=== PATIENT | female | born 1955 | race Caucasian/White ===

== ENCOUNTER 2016-12-18 06:03 | Inpatient (IN) | payer BC ==
[2016-12-04 08:22] VITALS: BMI 18.0
--- NOTE | 2016-12-04 08:59 | PAT Medication Instructions ---
Service Date Dec 04, 2016. Current Home Medication List Albuterol Sulf (Proventil 0.083% 2.5MG/3ML), 2.5 MG INH QID PRN for SOB/Wheezing Albuterol Sulfate (Proair Respiclick), 2 PUFF INH Q4 PRN for SOB/Wheezing Fluticasone Prop/Salmeterol (Advair Diskus 500/50 60 Dose), 1 PUFF INH BID Ipratropium-Albuterol (Duoneb), 1 TREATMENT INH BID Ipratropium-Albuterol (Combivent Respimat), 1 PUFFS INH QID PRN for SOB/Wheezing Levofloxacin (Levaquin), 500 MG PO UD PRN for rescue kit Lorazepam (Ativan), 0.5 MG PO Q6H PRN for Anxiety Polyethylene Glycol 3350 (Miralax), 17 GM PO QAM Prednisone (Deltasone), 1 DOSE PO UD PRN for RESCUE KIT Tramadol (Ultram), 100 MG PO Q4H PRN for Pain Medication Instructions For Your Scheduled Surgery Levofloxacin (Levaquin), 500 MG PO UD PRN for rescue kit (not taking currently) Prednisone (Deltasone), 1 DOSE PO UD PRN for RESCUE KIT (not taking currently) - Hold the following medications the morning of surgery: Polyethylene Glycol 3350 (Miralax), 17 GM PO QAM - Take the following medications the morning of surgery with a sip of water: Tramadol (Ultram), 100 MG PO Q4H PRN for Pain (can take up to four hours prior to surgery if needed) Lorazepam (Ativan), 0.5 MG PO Q6H PRN for Anxiety (if needed) Albuterol Sulf (Proventil 0.083% 2.5MG/3ML), 2.5 MG INH QID PRN for SOB/ Wheezing (if needed) Albuterol Sulfate (Proair Respiclick), 2 PUFF INH Q4 PRN for SOB/Wheezing ( bring with you to hospital on day of surgery) Fluticasone Prop/Salmeterol (Advair Diskus 500/50 60 Dose), 1 PUFF INH BID ( if needed) Ipratropium-Albuterol (Duoneb), 1 TREATMENT INH BID (if needed) Ipratropium-Albuterol (Combivent Respimat), 1 PUFFS INH QID PRN for SOB/ Wheezing (if needed) - Take the following medications as scheduled the night before surgery: Tramadol (Ultram), 100 MG PO Q4H PRN for Pain (if needed) Lorazepam (Ativan), 0.5 MG PO Q6H PRN for Anxiety (if needed) Albuterol Sulf (Proventil 0.083% 2.5MG/3ML), 2.5 MG INH QID PRN for SOB/ Wheezing (if needed) Albuterol Sulfate (Proair Respiclick), 2 PUFF INH Q4 PRN for SOB/Wheezing ( if needed) Fluticasone Prop/Salmeterol (Advair Diskus 500/50 60 Dose), 1 PUFF INH BID ( if needed) Ipratropium-Albuterol (Duoneb), 1 TREATMENT INH BID (if needed) Ipratropium-Albuterol (Combivent Respimat), 1 PUFFS INH QID PRN for SOB/ Wheezing (if needed) If you have any questions please call us at [phone] or [phone] ( [place]) or [phone]
[2016-12-04 10:18] LABS: URINE APPEARANCE CLEAR (CLEAR); URINE BILIRUBIN NEG (NEG); URINE COLOR YELLOW; URINE NITRITE NEG (NEG); URINE SPECIFIC GRAVITY 1.004 (1.000-1.030); UROBILINOGEN NEG (NEG)
[2016-12-04 10:23] LABS: INR 0.9 (0.9-1.1); PARTIAL THROMBOPLASTIN RATIO 1.1; PROTHROMBIN TIME (PATIENT) 10.1 SECONDS (9.0-12.0)
[2016-12-04 10:24] LABS: ESTIMATED AVERAGE GLUCOSE 123 mg/dl; HA1C FLAG Normal (Normal)
[2016-12-04 10:45] LABS: MANUAL MICROSCOPIC REQUIRED? NO; REVIEW REQ? NO
--- NOTE | 2016-12-17 10:03 | HISTORY & PHYSICAL EXAMINATION ---
DATE OF ADMISSION: 12/18/2016 CHIEF COMPLAINT: Right hip pain. HISTORY OF PRESENT ILLNESS: The patient is a 61-year-old female with known osteoarthritis about her right hip. She has had a previous intraarticular corticosteroid injection. She takes [id number]-[id number] pain medications as needed. She continues to have ongoing pain and disability and now desires to proceed with right total hip arthroplasty. PAST MEDICAL HISTORY: COPD. PAST SURGICAL HISTORY: Tubal ligation. MEDICATIONS: Include Combivent Respimat 20/100 one inhalation q. 4-6 hours, Meloxicam 15 mg daily, Ativan 0.5 mg q. 6 hours p.r.n. anxiety, Ventolin 2 puffs 3 times daily p.r.n., DuoNeb 2.5/0.5 four times daily, Advair Diskus 1 puff 2 times daily, tramadol 50 mg p.r.n. pain. ALLERGIES: AUGMENTIN CAUSES DIARRHEA, BEE STINGS. SOCIAL HISTORY AND REVIEW OF SYSTEMS: Noncontributory. PHYSICAL EXAMINATION: GENERAL: Well-nourished, well-developed, petite female who appears her stated age. HEAD, EYES, EARS, NOSE, AND THROAT: Normocephalic, atraumatic, extraocular movements intact, oropharynx pink and moist. NECK: Supple without adenopathy. LUNGS: Clear to auscultation bilaterally. HEART: Regular rate and rhythm. ABDOMEN: Soft, nontender, nondistended. EXTREMITIES: The upper extremities are within normal limits. The right hip demonstrates limited range of motion. There is decreased internal/external rotation with pain at end range. X-RAYS: X-rays were reviewed. She has severe osteoarthritis about the right hip with complete loss of the joint space. There is bone on bone arthritis. There is osteophyte formation about the femoral head and acetabulum. ASSESSMENT: Right hip degenerative joint disease. PLAN: Risks versus benefits were discussed. Consent was obtained. The patient's primary care physician is Dr. Parks from [place]. We will proceed with right total hip arthroplasty upon preoperative workup and medical clearance.
[2016-12-18] VITALS (10 sets, daily range): BP systolic 103–148; BP diastolic 51–80; PULSE 68–102; TEMP 36.6–36.9; O2SAT 92–98; Ht 152.4 cm; Wt 43.3 kg
[~2016-12-18] VITALS: Ht 152.4 cm; Wt 43.3 kg
[~2016-12-18 06:03] MED LIST: ACETAMINOPHEN 500 MG TAB PO SCH; ADVIN50/60 INH; ALBINS/ INH; ALBU18002 INH; CEFAZOLIN 1000MG/55 ML D5W 55 ML IV SCH; CeleBREX 200 MG CAP PO SCH; DEXAMETHASONE 4 MG TAB PO SCH; GABAPENTIN 300 MG CAP PO SCH; IPRA1AER2 INH; IPRASOL4 INH; LACTATED RINGER'S 1000ML 1,000 ML IV SCH; LACTATED RINGER'S 1000ML IV SCH; LEVO1TAB33 PO; LORA-741 PO; METOCLOPRAMIDE HCL 10 MG TAB PO SCH; POLY335019 PO; PRED-603 PO; TRAM-10 PO
[2016-12-18] MEDS: FAMOTIDINE 20 MG TAB PO SCH ×2 (06:21→06:55)
[2016-12-18] MEDS: TRANEXAMIC ACID INJ 1,000 MG in SODIUM CHLORIDE 0.9% 100ML 100 ML IV SCH ×2 (06:30→07:45)
[2016-12-18] MEDS ORDERED: BUPIVACAINE 0.5 % 5 MG/1 ML PF 10ML VIAL ONE (06:34)
[2016-12-18] MEDS ORDERED: POVIDONE-IODINE OP SOLN 30 ML BTL ONE (06:54)
[2016-12-18] MEDS ORDERED: BACITRACIN 50000 UNIT VIAL ONE (06:54)
--- NOTE | 2016-12-18 06:59 | History & Physical Bridge Note ---
H&P Re-Evaluation Bridge Note: I have examined the patient, reviewed the History & Physical and in the interval since the performance of the History & Physical I have noted the following changes of clinical significance: No changes noted
[2016-12-18] MEDS ORDERED: NURSING VERBAL MED ORDER ONE (07:00)
[2016-12-18] MEDS ORDERED: ROPIVACAINE 5MG/ML 30 ML 150 MG, BUPIVACAINE/EPINEPHR 0.5% MPF 30 ML, KETOROLAC TROMETH... INFIL SCH ×7 (07:00)
[2016-12-18] MEDS ORDERED: MIDAZOLAM HCL 1 MG/ML 2ML VIAL ONE (07:06)
[2016-12-18] MEDS ORDERED: FENTANYL CITRATE INJ 50 MCG/1 ML 2 ML VIAL ONE (07:06)
[2016-12-18] MEDS ORDERED: ORTHO JOINT ANESTHETIC ONE (07:14)
[2016-12-18] MEDS ORDERED: ONDANSETRON INJ 2 MG/ML 2 ML VIAL IV PRN ×2 (07:45→09:45)
[2016-12-18] MEDS ORDERED: EpHEDrine SULFATE INJ 50 MG/ML AMP IV PRN (07:45)
[2016-12-18] MEDS ORDERED: ATROPINE SULFATE 0.1 MG/ML 5ML SYR IV PRN (07:45)
[2016-12-18] MEDS ORDERED: FENTANYL CITRATE INJ 50 MCG/1 ML 2 ML VIAL IV PRN (07:45)
[2016-12-18] MEDS ORDERED: PROPOFOL IV EMULSION 10 MG/ML 20 ML VIAL IV ONE (08:30)
[2016-12-18] MEDS ORDERED: LIDOCAINE HCL 2% 2 ML VIAL (20MG/ML) ONE (08:30)
[2016-12-18] MEDS ORDERED: PHENYLEPHRINE 100MCG/ML 5ML SYR ONE (08:30)
--- NOTE | 2016-12-18 09:15 | [facility] Post Operative Brief Note ---
Immediate Operative Summary Operative Date Dec 18, 2016. Pre-Operative Diagnosis Right hip degenerative joint disease Post-Operative Diagnosis right hip degenerative joint disease Procedure(s) Performed Total right hip arthroplasty uncemented Surgeon Dr. Ellsworth Specialty Plant Supervisor Surgeon(s) Ac Avilez PA-C Estimated Blood Loss 100ml Findings oa Specimens A. Right Femur Head Disposition Recovery Room / PACU
[2016-12-18] MEDS ORDERED: IPRATROPIUM BROMIDE/ALBUTEROL respimat INH INH PRN (09:45)
[2016-12-18] MEDS ORDERED: NON-FORMULARY MEDICATION (Albuterol Sulfate (Proair Respiclick) 2 PUFF) INH PRN (09:45)
[2016-12-18] MEDS ORDERED: BISACODYL 10 MG SUPP PR PRN (09:45)
[2016-12-18] MEDS ORDERED: MAGNESIUM HYDROXIDE SUSP 30 ML UDC PO PRN (09:45)
[2016-12-18] MEDS ORDERED: ZOLPIDEM TARTRATE 5 MG TAB PO PRN (09:45)
[2016-12-18] MEDS ORDERED: MoRPHine SULFATE 2 MG/ML CARP IV PRN (09:45)
[2016-12-18] MEDS ORDERED: ALBUTEROL 0.083% NEBU SOLN 3 ML VIAL INH PRN (09:45)
[2016-12-18] MEDS ORDERED: LORAZEPAM 0.5 MG TAB PO PRN (09:45)
[2016-12-18] MEDS ORDERED: ALUMINUM/MAGNESIUM/SIMETH (MAALOX MAX) 30 ML UDC PO PRN (09:45)
[2016-12-18] MEDS ORDERED: DiphenhydrAMINE HCL 50 MG/ML VIAL IV PRN (09:45)
--- NOTE | 2016-12-18 10:14 | Anesthesiology Progress Note ---
Anesthesia Post Op Note Date & Time Dec 18, 2016 at 10:14 Vital Signs Pain Intensity: 0 Vital Signs Past 12 Hours Date Time Temp Pulse Resp B/P Pulse Ox O2 Delivery O2 Flow Rate FiO2 12/18/16 10:10 36.7 83 16 116/80 99 Nasal Cannula 3 12/18/16 10:00 68 16 131/65 100 Mask 5 12/18/16 09:50 71 16 134/85 100 Mask 10 12/18/16 09:40 73 16 138/77 100 Mask 10 12/18/16 09:38 36.8 80 16 121/88 98 Mask 10 12/18/16 06:34 36.9 102 20 135/80 92 Room Air Notes Mental Status: alert / awake / arousable, participated in evaluation Pt Amnestic to Procedure: Yes Nausea / Vomiting: adequately controlled Pain: adequately controlled Airway Patency, RR, SpO2: stable & adequate BP & HR: stable & adequate Hydration State: stable & adequate Neuraxial Anesthesia: was administered, sensory block is resolving Anesthetic Complications: no major complications apparent
--- NOTE | 2016-12-18 10:30 | OPERATIVE REPORT ---
DATE OF OPERATION: 12/18/2016 PREOPERATIVE DIAGNOSIS: Osteoarthritis, right hip. POSTOPERATIVE DIAGNOSIS: Osteoarthritis, right hip. PROCEDURE: Right connective total hip arthroplasty. SURGEON: Dr. Ellsworth. RAILROAD MAINTENANCE CLERK: MARLY Barnes. ANESTHESIA: Spinal. COMPLICATIONS: None. OPERATION AND FINDINGS: PROCEDURE: Following induction of adequate spinal anesthesia, the patient was placed in left lateral decubitus position and right Reina-Langenbeck incision was made. Subcutaneous tissue was sharply dissected. Electrocautery used for hemostasis. The fascia was incised throughout the length of the wound and a cook scissor placed beneath the short external rotators. The pyriformis was tagged with #1 Vicryl. The short external rotators were divided from the posterior aspect of the femur using electrocautery. These were swept posteriorly. A T-capsulotomy incision was made and the hip was dislocated using a combination of flexion, adduction, and internal rotation. Exposure of the femoral neck with old-style Hohmann and a blunt Hohmann was carried out and a femoral rasp was utilized as a guide for making the appropriate level femoral neck cut. This bone fragment was removed and reserved on the back table. Next, attention was turned to the acetabulum where bone hook was used to retract the femur while the offset retractors were placed anterior and posteriorly. A double-angled Hohmann was placed in superior and anterior position exposing the acetabulum nicely. Acetabular labrum as well as posterior capsule elements were removed using a long knife and a long pickup. Fovea centralis was cleared of all soft tissue. Sequential reamings were carried up to a 46 and decision was made to proceed with impaction of a 46 trabecular metal cup. This was impacted and held using a single 35 mm bone screw. The acetabular liner was placed with 15 of elevated posterior wall in the superior and posterior position. Next, attention was turned to the femoral portion of the case where a Bovie and pickup was used to further clear short external rotators from their insertion on the femur. Box osteotome was used to gain access to the femoral canal and the T-handled rasp and a rattail rasp were used to further open and lateral the canal. Sequentially raspings were carried up to a 2 which gave good fit and fill of the proximal femur. A trial reduction was carried out and std. offset femoral neck component was chosen as the size to be used. A -2.5 mm ceramic femoral head was impacted into position, +0 head was utilized. The trial reduction was stable in all degrees of rotation with no vihj-ne-bzvy impingement. The hip was dislocated. The trial components were removed and the final femoral stem, neck, and femoral head combination were assembled on the back table and impacted into position. Hip was relocated. Range of motion checked once again successful and the wound was irrigated. The pyriformis repaired to the greater trochanter using #1 Vicryl tyvuqz-fa-lalzf suture. A Hemovac drain was placed and the fascia was closed using #1 Vicryl, subcutaneous tissue was closed using 0 Dexon, and skin was closed with naeem. Sterile dressing of Adaptic, 4 x 4's, ABDs, and foam tape was applied. The patient tolerated the procedure well, recovery room stable. Due to the complex nature of the procedure, the entire surgery was performed with the operational assistance of MARLY Barnes. The program assistant, under direct supervision, was involved in the actual performance of all aspects of the surgical procedure including hemostasis, tissue retraction and incision, instrument management, patient positioning, and wound closure. I attest to the content of the Intraoperative Record and any orders documented therein. Any exceptions are noted below. TK
--- NOTE | 2016-12-18 10:34 | DIAGNOSTIC IMAGING REPORT ---
RIGHT PELVIS/UNILATERAL HIP 1 VIEW CLINICAL HISTORY: IN PACU - A/P PELVIS and LATERAL HIP INCLUDING ALL OF IMPLANT Right COMPARISON: None. DISCUSSION: Anatomic alignment status post total right hip replacement expected soft tissue postoperative change IMPRESSION: Anatomic alignment status post total right hip replacement Electronically signed by: Prakash Granados M.D. 12/18/2016 10:33 AM Dictated Date/Time: 12/18/2016 10:32 AM
[2016-12-18] MEDS ORDERED: ALBUTEROL HFA INHALER 8.5 GM INH PRN (12:00)
[2016-12-18] MEDS ORDERED: MoRPHine SULFATE 10 MG/ML CARP/VIAL IV PRN (12:15)
[2016-12-18] MEDS ORDERED: MoRPHine SULFATE 4 MG/ML 1 ML CARP\\VIAL IV PRN (12:15)
[2016-12-18] MEDS: FERROUS GLUCONATE 324 MG TAB PO SCH ×2 (12:48→16:20)
[2016-12-18] MEDS: D5W AND 1/2NSS + 20MEQ KCL 1,000 ML IV SCH ×2 (12:48→21:09)
[2016-12-18] MEDS: FLUTICASONE/SALMETEROL (ADVAIR) 500/50 INH 14 PUFF INH SCH ×2 (12:50→21:00)
[2016-12-18] MEDS: OXYCODONE HCL IR 5 MG TAB (IMMEDIATE RELEASE) PO PRN ×2 (14:13→18:39)
[2016-12-18] MEDS: CEFAZOLIN IV 1,000 MG in DEXTROSE 5% 50ML 50 ML IV SCH ×2 (16:18→23:46)
[2016-12-18] MEDS: ACETAMINOPHEN 500 MG TAB PO SCH ×2 (16:19→23:46)
[2016-12-18] MEDS: KETOROLAC TROMETHAMINE 15 MG/ML VIAL IV. SCH ×2 (16:19→21:10)
[2016-12-18] MEDS ORDERED: ALBUT/IPRATROP 3MG/0.5MG NEB 3 ML VIAL INH SCH (20:00)
[2016-12-18] MEDS: ALBUT/IPRATROP 3MG/0.5MG NEB 3 ML VIAL INH SCH (20:20)
[2016-12-18] MEDS ORDERED: SENNA 8.6 MG TAB PO SCH (21:00)
[2016-12-18] MEDS: DOCUSATE SODIUM 100 MG CAP PO SCH (21:08)
[2016-12-18] MEDS: ASPIRIN 81 MG ECTAB PO SCH (21:09)
[2016-12-19 03:15] VITALS: BP 119/65; PULSE 89; TEMP 36.6; O2SAT 95
[2016-12-19] MEDS: KETOROLAC TROMETHAMINE 15 MG/ML VIAL IV. SCH ×2 (03:31→10:23)
[2016-12-19 07:18] LABS: BASO % 0.1 %; BASO ABS # 0.01 K/uL (0-0.2); COMPLETE YES; EOS % 0.4 %; HEMATOCRIT 31.7 % (37-47); IG% 0.2 %; LYMPH ABS # 1.79 K/uL (1.2-3.4); MEAN CELL VOLUME 97.5 fL (80-100); MEAN CORPUSCULAR HEMOGLOBIN 32.6 pg (25-34); MEAN CORPUSCULAR HGB CONC 33.4 g/dl (32-36); MEAN PLATELET VOLUME 10.6 fL (7.4-10.4); MONO % 9.5 %; NEUT % 70.8 %; PLATELET COUNT 178 K/uL (130-400); RED BLOOD COUNT 3.25 M/uL (4.2-5.4); WHITE BLOOD COUNT 9.43 K/uL (4.8-10.8)
[2016-12-19 07:28] VITALS: PULSE 74; O2SAT 98
[2016-12-19] MEDS: ALBUT/IPRATROP 3MG/0.5MG NEB 3 ML VIAL INH SCH (07:28)
[2016-12-19 07:42] LABS: BUN/CREATININE RATIO 16.4 (10-20); CALCIUM 8.1 mg/dl (8.5-10.1); CREATININE 0.55 mg/dl (0.60-1.20); POTASSIUM 4.3 mmol/L (3.5-5.1)
--- NOTE | 2016-12-19 07:43 | Orthopedic Progress Note ---
Orthopedic Progress Note Date of Service Dec 19, 2016. Subjective Post OP Day: 1 Reports: feeling well (Pt wants to go home) Objective calves soft nontender, N/V intact, dressing C/D/I (Hemovac will be d/c'd), toes mobile Date Time Temp Pulse Resp B/P Pulse Ox O2 Delivery O2 Flow Rate FiO2 12/19/16 07:28 74 16 98 Room Air 12/19/16 07:23 Room Air 12/19/16 03:15 36.6 89 16 119/65 95 Room Air 12/18/16 23:35 Room Air 12/18/16 22:58 36.6 81 16 108/51 94 Room Air 12/18/16 20:20 74 16 98 Room Air 12/18/16 20:06 36.8 72 16 103/57 94 Room Air 12/18/16 19:20 Room Air 12/18/16 15:20 36.6 90 17 139/73 96 Nasal Cannula 2.0 12/18/16 13:30 86 16 148/72 95 12/18/16 12:40 81 16 135/67 98 12/18/16 11:30 68 16 114/64 98 12/18/16 11:00 88 16 145/67 97 12/18/16 10:30 Nasal Cannula 3.0 12/18/16 10:30 36.8 74 16 131/66 96 Nasal Cannula 3.0 12/18/16 10:30 Nasal Cannula 3.0 12/18/16 10:20 83 16 122/68 97 Nasal Cannula 3 12/18/16 10:10 36.7 83 16 116/80 99 Nasal Cannula 3 12/18/16 10:00 68 16 131/65 100 Mask 5 12/18/16 09:50 71 16 134/85 100 Mask 10 12/18/16 09:40 73 16 138/77 100 Mask 10 12/18/16 09:38 36.8 80 16 121/88 98 Mask 10 Laboratory Results 24 Hours: Test 12/19/16 06:45 White Blood Count 9.43 K/uL Red Blood Count 3.25 M/uL Hemoglobin 10.6 g/dL Hematocrit 31.7 % Mean Corpuscular Volume 97.5 fL Mean Corpuscular Hemoglobin 32.6 pg Mean Corpuscular Hemoglobin Concent 33.4 g/dl Platelet Count 178 K/uL Mean Platelet Volume 10.6 fL Neutrophils (%) (Auto) 70.8 % Lymphocytes (%) (Auto) 19.0 % Monocytes (%) (Auto) 9.5 % Eosinophils (%) (Auto) 0.4 % Basophils (%) (Auto) 0.1 % Neutrophils # (Auto) 6.67 K/uL Lymphocytes # (Auto) 1.79 K/uL Monocytes # (Auto) 0.90 K/uL Eosinophils # (Auto) 0.04 K/uL Basophils # (Auto) 0.01 K/uL Assessment & Plan Assessment: 61 yo female stable POD #1 s/p right RUBINA Plan: 1. Med management 2. DVT prophylaxis- ASA, TEDs, SCDs 3. PT/OT 4. D/C planning- home w/ HH
[2016-12-19] MEDS ORDERED: ASPEC81 PO (07:46)
[2016-12-19] MEDS ORDERED: ACET-1138 PO (07:46)
[2016-12-19] MEDS ORDERED: RXC5 PO (07:46)
--- NOTE | 2016-12-19 07:48 | Discharge Instructions ---
Discharge Instructions Admission Reason for Admission: Right Hip Degenerative Joint Disease Discharge Discharge Diagnosis / Problem: Right hip arthritis Discharge Goals Goal(s): Decrease discomfort, Improve function Activity Recommendations Activity Limitations: as noted below . Instructions / Follow-Up Instructions / Follow-Up ACTIVITY RECOMMENDATIONS: SELF CARE INSTRUCTIONS AFTER TOTAL HIP REPLACEMENT Until the incision and soft tissues around your hip have healed, there is a possibility that the hip prosthesis could dislocate. A. Observe the following precautions to prevent dislocation: 1. Don't bend your hip greater than 90 degrees. 2. Avoid crossing your legs or ankles while standing or lying. 3. Sit with your feet placed 6 inches apart. 4. When sitting, keep your knees below your hips. Sit on a firm surface, avoid deep, soft chairs and couches. Use an elevated toilet seat in the bathroom. 5. Don't bend over at the waist. Use a long handled shoehorn and a sock aid to help you put on your shoes and socks. A advertising inserter can help you pepper picker objects that are too high or too low to reach. 6. Keep car riding to a minimum for at least one month after surgery. B. Your balance may be shaky for a while. Use crutches or a walker until directed by your doctor. C. Use hand rails when walking on stairs. D. Wear low heeled shoes with non-slip soles. E. Be sure that your floors are free of things that could trip you - throw rugs , electrical cords, small objects. Avoid wet and waxed floors, especially with crutches and canes. F. Try to walk several times a day with rest periods between. G. Continue with all the exercises taught to you in the hospital. Again, make walking a part of your daily routine. SPECIAL CARE INSTRUCTIONS: VERY IMPORTANT TO READ AND REVIEW A. You may still be at risk for phlebitis and blood clots. 1. Wear surgical stockings (RADHA hose) for 2 weeks after surgery to improve circulation and reduce swelling. 2. Take Aspirin 81mg twice daily for 4 weeks or as directed by your doctor. This is your blood thinner. 3. High risk patients may be prescribed a stronger blood thinner if necessary. 4. If you are on Coumadin normally, your family doctor/golf course architect should monitor your blood work. Expect a phone call the day of or the day after bloodwork is drawn to adjust your dosage. B. You must take antibiotics before having dental work, bladder, bowel and other surgery. Your doctor will provide you with a permanent card to carry describing precautions. C. [facility] if you have a fever, redness or swelling around the incision, cloudy drainage from incision, or sudden increase in pain in your hip, not relieved by your regular pain medication. D. Please call the office at if you have any concerns or questions about your operation or recovery. * YOU MAY SHOWER, NO TUB BATHS UNTIL CLEARED BY YOUR DOCTOR. * WEAR RADHA HOSE 20 HOURS PER DAY FOR 2 WEEKS. * YOU SHOULD USE A WALKER OR CRUTCHES FOR 2-4 WEEKS. THIS WILL HELP PREVENT STRAIN ON YOUR HIP MUSCLE AND ALLOW IT TO HEAL PROPERLY. YOU MAY WEAN TO A CANE TOLERATED. * MOST PATIENTS WILL HAVE HOME NURSING FOR THERAPY. IF YOU DECIDE TO DO OUTPATIENT PHYSICAL THERAPY, PLEASE SCHEDULE THIS 3 TIMES PER WEEK. Silverlon- This is a large adhesive bandage that contains silver ions. This helps your incision heal by fighting off bacteria and protecting it from the outside environment. You are permitted to shower with this dressing. This will remain on your incision for 7 days and then should be removed. Some visible blood or drainage through the dressing window is normal. If there is significant drainage or leaking noted before the 7 days notify your doctor's office immediately. Once removed, keep incision clean and dry. If there is any drainage or redness noted, please call your surgeon. FOLLOW UP VISIT: If appointment is not already scheduled: Please call [facility] to make a follow-up appointment for 2 weeks after your surgery at . Current Hospital Diet Patient's current hospital diet: Regular Diet Discharge Diet Recommended Diet: Regular Diet Procedures Procedures Performed: Total right hip arthroplasty uncemented Pending Studies Studies pending at discharge: no Laboratory Results Hemoglobin A1c Test 12/04/16 09:05 Range/Units Estimated Average Glucose 123 mg/dl Hemoglobin A1c 5.9 H 4.5-5.6 % Medical Emergencies . Who to Call and When: Medical Emergencies: If at any time you feel your situation is an emergency, please call 911 immediately. . Non-Emergent Contact Non-Emergency issues call your: Surgeon Call Non-Emergent contact if: temperature is above 101.5, your pain is not controlled, wound has increased drainage, wound has increased redness . "Provider Documentation" section prepared by Eleuterio Malave PA-C. VTE Core Measure Inpt VTE Proph given/why not?: Other Anticoagulation (ASA 81mg bid), T.E.D. Stockings, SCD's
[2016-12-19] MEDS: D5W AND 1/2NSS + 20MEQ KCL 1,000 ML IV SCH (08:00)
[2016-12-19] MEDS: ACETAMINOPHEN 500 MG TAB PO SCH (08:05)
[2016-12-19 08:06] VITALS: BP 140/70; PULSE 80; TEMP 36.7; O2SAT 95
[2016-12-19] MEDS ORDERED: MULTIVITAMIN TAB PO SCH (09:00)
[2016-12-19] MEDS ORDERED: PANTOprazole SOD 40 MG TAB PO SCH (09:00)
[2016-12-19] MEDS: FERROUS GLUCONATE 324 MG TAB PO SCH ×2 (09:01→12:46)
[2016-12-19] MEDS: ASPIRIN 81 MG ECTAB PO SCH (09:01)
[2016-12-19] MEDS: FLUTICASONE/SALMETEROL (ADVAIR) 500/50 INH 14 PUFF INH SCH (09:02)
[2016-12-19] MEDS: DOCUSATE SODIUM 100 MG CAP PO SCH (09:02)
[2016-12-19 09:27] VITALS: O2SAT 95
[2016-12-19 11:52] VITALS: BP 127/63; PULSE 72; TEMP 36.6; O2SAT 99
[2016-12-19 12:14] VITALS: BP 127/63; PULSE 72; TEMP 36.6; O2SAT 99
[2016-12-19] MEDS: OXYCODONE HCL IR 5 MG TAB (IMMEDIATE RELEASE) PO PRN (12:46)
--- NOTE | 2016-12-24 00:53 | DISCHARGE SUMMARY ---
DISCHARGE DIAGNOSIS: Degenerative joint disease, right hip. SECONDARY DIAGNOSES: Chronic obstructive pulmonary disease. CONSULTS: None. COMPLICATIONS: None. PROCEDURES: Right total hip arthroplasty performed by Dr. Ellsworth on 12/18/2016. BRIEF HISTORY: As dictated in history and physical. HOSPITAL SUMMARY: The patient was admitted on the above-noted date and had the above-noted surgery performed which he tolerated well. On the first postoperative day, the patient was feeling well and wanting to go home. Calves were soft and nontender. Neurovascularly intact. Dressings clean, dry and intact. Toes were mobile. Hip was located and vital signs were stable. He was afebrile. Hemoglobin was 10.6 and was started on physical therapy protocol and continued on DVT prophylaxis and pain management. He was progressing well with his physical therapy and remaining stable and by the afternoon of 12/19/2016, it was felt that he could be discharged to home. For further review, please see chart. LAB AND X-RAY DATA: As per chart. DISCHARGE INSTRUCTIONS: The patient was discharged to home in satisfactory condition on 12/19/2016. DIET: Regular. ACTIVITY: Follow RUBINA instruction sheets and special care instructions as written. Follow up with Dr. Ellsworth in 2 weeks. The patient is to call for appointment if one has not been made for you. DISCHARGE MEDICATIONS: Acetaminophen 1000 mg p.o. q. 8 hours, aspirin 81 mg p.o. b.i.d., oxycodone 5-10 mg p.o. q. 4-6 hours p.r.n., resume taking albuterol 2.5 mg inhaled q.i.d. p.r.n., also albuterol sulfate 2 puffs inhaled q. 4 hours p.r.n. with the nonnebulizer, DuoNeb 1 treatment inhaled b.i.d., Combivent 1 puff inhaled q.i.d. p.r.n., levofloxacin 500 mg p.o. as directed p.r.n. rescue kit, lorazepam 0.5 mg p.o. q. 6 hours p.r.n., MiraLax 17 grams p.o. q.a.m., prednisone 20 mg 1 dose p.o. as directed per rescue kit, stop taking tramadol.
== END 2016-12-19 13:26 | disposition home health service (06) | DRG 470 ==
LOC: ENRESERVTM → ENRESERVDT → C.ACU 06:03 → C.3E 07:15
PROC: 0SR90JA Replacement of Right Hip Joint with Synthetic Substitute, Uncemented, Open Approach (ICD-10-PCS; principal; 2016-12-18 07:45)
DX: M16.11 Unilateral primary osteoarthritis, right hip (principal); J44.9 Chronic obstructive pulmonary disease, unspecified; F41.9 Anxiety disorder, unspecified; Z87.891 Personal history of nicotine dependence; Z79.51 Long term (current) use of inhaled steroids; Z79.891 Long term (current) use of opiate analgesic; Z79.899 Other long term (current) drug therapy